=== PATIENT | female | born 1960 | race Caucasian/White ===

== ENCOUNTER 2017-07-23 18:31 | Emergency (ER) | payer MEDICARE, MEDICAID ==
--- NOTE | 2017-07-23 19:57 | EDM.PDOC ---
ED HPI GENERAL MEDICAL PROBLEM - General Chief Complaint: Upper Extremity Injury/Pain Stated Complaint: DISCOLORTATION ON ARM [id number] Time Seen by Provider: 07/23/17 19:56 Source of Information: Reports: Patient History Limitations: Reports: No Limitations - History of Present Illness INITIAL COMMENTS - FREE TEXT/NARRATIVE: This 56 yo female patient was brought to the ED by her caregiver due to bruising on her right forearm and wrist. The patient normally is in a wheelchair all of the time. The caregiver reports he was at the house all day and the patient did not fall or hit his arm to his knowledge. The patient does not communicate verbally, but does not express any pain with movement or palpation of the right arm or wrist. Onset: Today Duration: Constant Location: Reports: Upper Extremity, Right Severity: Mild Improves with: Reports: None Worsens with: Reports: None Context: Reports: Other (unknown) Associated Symptoms: Reports: No Other Symptoms - Related Data Allergies Allergy/AdvReac Type Severity Reaction Status Date / Time haloperidol Allergy Cannot Verified 07/23/17 19:02 Remember metronidazole Allergy Cannot Verified 07/23/17 19:02 Remember olanzapine [From Zyprexa] Allergy Cannot Verified 07/23/17 19:02 Remember Home Meds: Home Meds Aspirin [Angely Chewable] 81 mg PO 06/14/13 [History] Folic Acid [Folic Acid] 1 mg PO DAILY 06/14/13 [History] Loratadine [Claritin] 10 mg PO DAILY 06/14/13 [History] Melatonin/Pyridoxine HCl (B6) [Melatonin 3 mg Tablet] 3 mg PO BEDTIME 06/05/14 [ History] Methimazole 10 mg PO 06/05/14 [History] Multivitamin 1 tab PO DAILY 06/05/14 [History] Tobramycin/Dexamethasone [Tobradex Eye Ointment] 3.5 gm OP 06/05/14 [History] Ziprasidone HCl [Geodon] 80 mg PO BID 06/05/14 [History] Past Medical History Neurological History: Reports: CVA Psychiatric History: Reports: Bipolar, Learning Disability Endocrine/Metabolic History: Reports: Hyperthyroidism Social & Family History - Tobacco Use Smoking Status *Q: Never Smoker Second Hand Smoke Exposure: No - Alcohol Use Days Per Week of Alcohol Use: 0 - Recreational Drug Use Recreational Drug Use: No Review of Systems - Review of Systems Review Of Systems: ROS reveals no pertinent complaints other than HPI. ED EXAM, GENERAL - Physical Exam Exam: See Below Exam Limited By: No Limitations General Appearance: Alert, WD/WN, No Apparent Distress, Thin Eye Exam: Bilateral Eye: EOMI, Normal Inspection, PERRL Ears: Normal External Exam, Normal Canal, Hearing Grossly Normal, Normal TMs Nose: Normal Inspection, Normal Mucosa, No Blood Throat/Mouth: Normal Inspection, Normal Lips, Normal Gums, Normal Oropharynx, Normal Voice, No Airway Compromise, Other (no teeth present) Head: Atraumatic, Normocephalic Neck: Normal Inspection, Supple, Non-Tender, Full Range of Motion Respiratory/Chest: No Respiratory Distress, Lungs Clear, Normal Breath Sounds, No Accessory Muscle Use, Chest Non-Tender Cardiovascular: Normal Peripheral Pulses, Regular Rate, Rhythm, No Edema, No Gallop, No JVD, No Murmur, No Rub GI/Abdominal: Normal Bowel Sounds, Soft, Non-Tender, No Organomegaly, No Distention, No Abnormal Bruit, No Mass (Female) Exam: Deferred Rectal (Female) Exam: Deferred Back Exam: Normal Inspection, Full Range of Motion, NT Extremities: Other (The patient has bruising to her distal radius/ulna on her right arm. There are no abrasions or lacerations to the area. The patient does wear a wonder bracelet on that wrist and is wheelchair bound. ) Neurological: Alert, Oriented, CN II-XII Intact, Normal Cognition, Normal Gait, Normal Reflexes, No Motor/Sensory Deficits Psychiatric: Normal Affect, Normal Mood Skin Exam: Other (described above) Lymphatic: No Adenopathy Course - Vital Signs Last Recorded V/S: Last Vital Signs Temp 36.8 C 07/23/17 18:57 Pulse 92 07/23/17 18:57 Resp 18 07/23/17 18:57 BP 159/68 H 07/23/17 18:57 Pulse Ox 100 07/23/17 18:57 - Orders/Labs/Meds Orders: Active Orders 24 hr Category Date Time Status Forearm 2V Rt [CR] Urgent Exams 07/23/17 19:37 Ordered Departure - Departure Time of Disposition: 20:06 Disposition: Home, Self-Care 01 Condition: Fair Clinical Impression: Contusion of right forearm Qualifiers: Encounter type: initial encounter Qualified Code(s): S50.11XA - Contusion of right forearm, initial encounter - Discharge Information Instructions: Contusion, [id number] Care Plan Goals: The patient and patient's caregiver were advised of the examination and x-ray results during the visit. The patient was encouraged to rest, ice and elevate the extremity. If the patient has any additional symptoms or concerns, the patient should visit her primary care facility or return to the emergency department. - My Orders Last 24 Hours: My Active Orders 07/23/17 19:37 Forearm 2V Rt [CR] Urgent - Assessment/Plan Last 24 Hours: My Active Orders 07/23/17 19:37 Forearm 2V Rt [CR] Urgent
== END 2017-07-23 20:12 | disposition home or self-care (01) ==
LOC: DL.ED 18:31
DX: S50.11XA Contusion of right forearm, initial encounter (principal); Z88.8 Allergy status to other drugs, medicaments and biological substances; Z79.82 Long term (current) use of aspirin; Z79.899 Other long term (current) drug therapy; X58.XXXA Exposure to other specified factors, initial encounter
CPT/HCPCS: 73090-RT; 99283

== ENCOUNTER 2020-02-12 14:27 | Emergency (ER) | payer MEDICARE, MEDICAID ==
--- NOTE | 2020-02-12 15:04 | EDM.PDOC ---
ED HPI GENERAL MEDICAL PROBLEM - General Stated Complaint: FEVER,TREMBLING,VERY WEAK,LOW O2 [id number] Time Seen by Provider: 02/12/20 14:36 Source of Information: Reports: Other (Caregiver) History Limitations: Reports: Language Barrier - History of Present Illness INITIAL COMMENTS - FREE TEXT/NARRATIVE: 59-year-old female who was brought in from the [place] [facility] by caregivers for complaints of wheezing, weakness, trembling, and low-grade fevers. Patient was diagnosed with COVID-19 4 days ago along the other resident's in the [facility] [facility]. Staff reports that patient has not been drinking as usual and was wheezing and trembling when helped to the bathroom this afternoon. Patient has been having a low-grade fever at 99-100 with Tylenol given as scheduled. Caregiver who brought patient in to the ER states that patient has been quiet but she has not noticed any of the other symptoms reported by staff. Staff denies any change in urinary symptoms, shortness of breath, cough, palpitations at this time. - Related Data Allergies Allergy/AdvReac Type Severity Reaction Status Date / Time haloperidol Allergy Cannot Verified 02/12/20 14:45 Remember metronidazole Allergy Cannot Verified 02/12/20 14:45 Remember olanzapine [From Zyprexa] Allergy Cannot Verified 02/12/20 14:45 Remember Home Meds: Home Meds Aspirin [Angely Chewable] 81 mg PO 06/14/13 [History] Folic Acid 1 mg PO DAILY 06/14/13 [History] Loratadine [Claritin] 10 mg PO DAILY 06/14/13 [History] Melatonin/Pyridoxine HCl (B6) [Melatonin 3 mg Tablet] 3 mg PO BEDTIME 06/05/14 [History] Multivitamin 1 tab PO DAILY 06/05/14 [History] Tobramycin/Dexamethasone [Tobradex Eye Ointment] 3.5 gm OP 06/05/14 [History] methIMAzole [Methimazole] 10 mg PO 06/05/14 [History] ziprasidone HCL [Geodon] 80 mg PO BID 06/05/14 [History] Past Medical History Neurological History: Reports: CVA Psychiatric History: Reports: Bipolar, Learning Disability Endocrine/Metabolic History: Reports: Hyperthyroidism ED ROS GENERAL - Review of Systems Review Of Systems: Unable To Obtain (Patient non verbal) Reason Not Obtained: language barrier ED EXAM, GENERAL - Physical Exam Exam: See Below Exam Limited By: Uncooperative General Appearance: Alert, No Apparent Distress Eye Exam: Bilateral Eye: PERRL Ears: Normal External Exam, Normal Canal, Normal TMs Nose: Normal Inspection, Normal Mucosa, No Blood Throat/Mouth: Other (refused) Head: Atraumatic, Normocephalic Neck: Normal Inspection, Supple, Non-Tender, Full Range of Motion Respiratory/Chest: No Respiratory Distress, Lungs Clear, Normal Breath Sounds, No Accessory Muscle Use, Chest Non-Tender Cardiovascular: Normal Peripheral Pulses, Regular Rate, Rhythm, No Edema, No Murmur Peripheral Pulses: 3+: Posterior Tibial (L), Posterior Tibial (R), Dorsalis Pedis (L), Dorsalis Pedis (R) GI/Abdominal: Normal Bowel Sounds, Soft, Non-Tender, No Organomegaly (Female) Exam: Deferred Rectal (Female) Exam: Deferred Neurological: Alert Psychiatric: Flat Affect Skin Exam: Warm Course - Vital Signs Last Recorded V/S: Last Vital Signs Temp 97.8 F 02/12/20 14:30 Pulse 98 02/12/20 14:30 Resp 14 02/12/20 14:30 BP 130/84 02/12/20 14:30 Pulse Ox 98 02/12/20 14:30 - Orders/Labs/Meds Orders: Active Orders 24 hr Category Date Time Status CBC WITH AUTO DIFF [HEME] Stat Lab 02/12/20 14:35 Ordered CMP [COMPREHENSIVE METABOLIC PN,CMP] [CHEM] Stat Lab 02/12/20 14:35 Ordered - Re-Assessments/Exams Free Text/Narrative Re-Assessment/Exam: 59-year-old female who presents to the ER with caregiver for complaints of wheezing and low-grade fever. Patient's vitals are stable. Physical exam no unremarkable at this time. encouraged caregiver to continue with Tylenol, rest and push fluids. Symptoms to return to the ER [id number] with caregiver and also included in the AVS. 02/12/20 15:30 Departure - Departure Time of Disposition: 15:00 Disposition: DC/Tfer to [facility] Home [facility] Condition: Fair Clinical Impression: Fever due to COVID-19 - Discharge Information Instructions: COVID-19 Frequently Asked Questions, Fever, Adult, [id number] Forms: ED Summary Discharge Additional Instructions: Continue tylenol prn, push fluids and return to the ER if having fevers higher than 102 or follow up with PCP. Sepsis Event Note (ED) - Evaluation Sepsis Screening Result: No Definite Risk - Focused Exam Vital Signs: Vital Signs Temp Pulse Resp BP Pulse Ox 02/12/20 14:30 97.8 F 98 14 130/84 98 - My Orders Last 24 Hours: My Active Orders 02/12/20 14:35 CBC WITH AUTO DIFF [HEME] Stat CMP [COMPREHENSIVE METABOLIC PN,CMP] [CHEM] Stat - Assessment/Plan Last 24 Hours: My Active Orders 02/12/20 14:35 CBC WITH AUTO DIFF [HEME] Stat CMP [COMPREHENSIVE METABOLIC PN,CMP] [CHEM] Stat
== END 2020-02-12 15:17 ==
LOC: DL.ED 14:27
DX: U07.1 COVID-19 (principal); F31.9 Bipolar disorder, unspecified; Z86.73 Personal history of transient ischemic attack (TIA), and cerebral infarction without residual deficits; Z79.899 Other long term (current) drug therapy; Z88.1 Allergy status to other antibiotic agents; Z88.8 Allergy status to other drugs, medicaments and biological substances
CPT/HCPCS: 99282; 99283